=== PATIENT | female | born 1970 | race Caucasian/White ===

== ENCOUNTER → 2020-09-10 | Outpatient (CLI) | payer BC ==
--- NOTE | 2020-09-10 12:12 | US ---
EXAMINATION TYPE: US abdomen complete DATE OF EXAM: 09/10/2020 COMPARISON: NONE CLINICAL HISTORY: R10.13 Epigastric Abdominal Pain. LUQ pain x 3 months on and off. EXAM MEASUREMENTS: Liver Length: 14.6 cm Gallbladder Wall: 0.1 cm CBD: 0.4 cm Spleen: 8.8 cm Right Kidney: 10.8 x 4.8 x 4.4 cm cm Left Kidney: 10.9 x 5.5 x 4.0 cm Pancreas: Partially Obscured by bowel gas Liver: Increased attenuation, decreased visualization of vessels suggestive of fatty infiltrate Gallbladder: No stones seen Evidence for sonographic Jasso's sign: No CBD: wnl Spleen: wnl Right Kidney: No hydronephrosis or masses seen Left Kidney: No hydronephrosis or masses seen Upper IVC: Obscured by overlying bowel gas Abd Aorta: wnl Sub optimal exam overall due to large amounts of bowel gas. IMPRESSION: 1. Visualized ultrasound abdomen is unremarkable
== END | disposition home or self-care (01) ==
LOC: RADUSWWP 06:55
PROVIDERS: ATTEND Family Medicine
DX: R10.13 Epigastric pain (principal)
CPT/HCPCS: 76700